=== PATIENT | female | born 1955 | race Caucasian/White ===

== ENCOUNTER 2019-04-30 11:18 | Outpatient (CLI) | payer BC ==
--- NOTE | 2019-04-30 12:14 | CT ---
CT Abdomen Pelvis W WO con: 04/30/2019 12:00 AM CLINICAL HISTORY: Microscopic Hematuria. Proteinuria and left lower quadrant abdominal pain. TECHNIQUE: Multiple contiguous axial images were obtained and a CT of the abdomen and pelvis without and with IV contrast. Postcontrast images were obtained in the nephrographic and excretory phases. Sagittal and coronal reformats were performed. COMPARISON: None. FINDINGS: Kidneys and Urinary Tract: Right kidney and ureter: No calculi. No hydronephrosis or hydroureter. No renal mass or other lesions . No urothelial lesions: no filling defect, dilation, stricture or wall thickening. Left kidney and ureter: No calculi. No hydronephrosis or hydroureter. No renal mass or other lesions. No urothelial lesions: no filling defect, dilation, stricture or wall thickening. Urinary bladder: Normal, no calculi, mass or other lesions. Remainder of Abdomen and Pelvis: Liver: Normal. Gallbladder and biliary system: Normal. No CT evident gallstones. No biliary ductal dilatation. Spleen: Normal. Pancreas: Normal. Adrenal glands: Normal. GI tract: Normal. Abdominal aorta and its major branches: Normal. No aneurysm. Peritoneum/retroperitoneum: Normal. No ascites. No adenopathy. Pelvic structures: Normal. No pelvic lymphadenopathy. Body wall and musculoskeletal: Degenerative changes in the spine. Visualized lower thorax: Normal. No pulmonary parenchymal mass or pleural effusion. IMPRESSION: Negative CT Urogram. No etiology identified for hematuria.
== END 2019-04-30 11:19 | disposition home or self-care (01) ==
LOC: BICCT 11:18
PROVIDERS: ATTEND Urology
DX: R31.29 Other microscopic hematuria (principal)
CPT/HCPCS: 74178; 82565

== ENCOUNTER 2020-04-30 08:47 | Outpatient (CLI) | payer MEDICARE ==
--- NOTE | 2020-04-30 10:59 | PET ---
PET SCAN WITH CT ATTENUATION CORRECTION: HISTORY: Abnormal MRI. Spine lesion. Evaluate for osseous disease/osseous metastases. COMPARISON: None. TECHNIQUE: PET scan with CT attenuation correction is performed from the base of the brain to the proximal thigh s following the intravenous and demonstration of 12.0 which is of [id number]. FINDINGS: Head and neck: There is increased FDG avidity involving a soft tissue mass in the right neck, measuri ng 1.8 x 1.[address] used for attenuation correction. This lesion has a maximum SUV of 6.8. An enlarged hypermetabolic neck lymph node is favored. Chest: There appears to be increased FDG avidity in the left and right hilum likely associated with h ypermetabolic lymph nodes. Right hilar lymph nodes have a maximum SUV of 8.7. Left hilar lymph nodes have a maximum SUV of 5.8. CT demonstrates multiple solid nodules throughout the lung parenchym a. The majority of these nodules are too small to adequately assess on PET imaging. There is a mildly hypermetabolic nodule in the left upper lobe with a maximum SUV of approximately 2. Abdomen and pelvis: No abnormal FDG localization. Extremities: Increased FDG avidity associated with a left knee arthroplasty, likely reactive. Osseous structures: There is no abnormal FDG avidity with regards to the thoracic or lumbar spine. Th ere is increased FDG avidity at L1, likely reactive from an associated vertebroplasty. No significant FDG avidity in the lumbosacral junction, compatible with suspected discitis ostial myelit is. IMPRESSION: 1. Fluorodeoxyglucose avidity involving a right neck lymph node. Lymph node may be amenable to ultras ound-guided biopsy. 2. Bilateral hilar hypermetabolic lymphadenopathy. Additional lung parenchymal nodules are identified . The majority of these nodules are too small to assess by PET imaging. 3. No evidence of abnormal FDG avidity involving the lumbar spine. The lesions noted on the MRI are l ikely below the imaging threshold criteria for PET imaging. CODE T Transcribed Date/Time: 04/30/2020 11:14 AM
== END 2020-04-30 08:48 | disposition home or self-care (01) ==
LOC: PET 08:47
PROVIDERS: ATTEND Surgery
DX: M46.40 Discitis, unspecified, site unspecified (principal); D48.0 Neoplasm of uncertain behavior of bone and articular cartilage; R59.0 Localized enlarged lymph nodes; R91.8 Other nonspecific abnormal finding of lung field
CPT/HCPCS: 78816; A9552

== ENCOUNTER 2020-10-29 08:53 | Outpatient (CLI) | payer MEDICARE, OTHER ==
[2020-10-29 10:31] LABS: PTT 23.6 sec (22.0-33.0); Prothrombin Time 10.6 sec (9.5-12.1)
[2020-10-29 10:42] LABS: Hemoglobin 13.4 g/dL (12.0-15.5); Mean Corpuscular HGB CONC 32.3 g/dL (32.0-36.0); Mean Corpuscular Hemoglobin 28.8 pg (27.0-33.0); Mean Corpuscular Volume 89.1 fl (81.6-98.3); Mean Platelet Volume 9.6 fl (7.4-10.4); Platelet Count 231 10x3/uL (150-450); RBC Distribution Width 14.4 % (11.5-14.5); Red Blood Cell (RBC) Count 4.66 10x6/uL (3.90-5.03); White Blood Cell (WBC) Count 8.5 10x3/uL (3.5-10.5)
[2020-10-29 10:45] LABS: Anion Gap 11 mmol/L (10-20); BUN (Urea Nitrogen) 21 mg/dL (9.8-20.1); Calc. Creatinine Clearance 0 mL/min (70-130); Calcium 9.5 mg/dL (7.8-10.44); Carbon Dioxide 29 mmol/L (23-31); Chloride 105 mmol/L (98-107); Glucose 85 mg/dL (80-115); Potassium 4.4 mmol/L (3.5-5.1); Sodium 141 mmol/L (136-145)
[2020-10-29 23:49] LABS: SARS-CoV-2 NAA Rapid Test Not Detected (NotDetected)
== END 2020-10-29 08:54 | disposition home or self-care (01) ==
LOC: LABBT 08:53
PROVIDERS: ATTEND Surgery
DX: Z01.818 Encounter for other preprocedural examination (principal); M48.062 Spinal stenosis, lumbar region with neurogenic claudication; M43.16 Spondylolisthesis, lumbar region; Z20.822 Contact with and (suspected) exposure to COVID-19
CPT/HCPCS: 80048; 85027; 85610; 85730; 86850; 86900; 86901; 93005; U0002; U0005; 93010

== ENCOUNTER 2020-11-03 07:56 | Day surgery (SDC) | payer MEDICARE ==
[2020-10-29 10:31] LABS: PTT 23.6 sec (22.0-33.0); Prothrombin Time 10.6 sec (9.5-12.1)
[2020-10-29 10:42] LABS: Hemoglobin 13.4 g/dL (12.0-15.5); Mean Corpuscular HGB CONC 32.3 g/dL (32.0-36.0); Mean Corpuscular Hemoglobin 28.8 pg (27.0-33.0); Mean Corpuscular Volume 89.1 fl (81.6-98.3); Mean Platelet Volume 9.6 fl (7.4-10.4); Platelet Count 231 10x3/uL (150-450); RBC Distribution Width 14.4 % (11.5-14.5); Red Blood Cell (RBC) Count 4.66 10x6/uL (3.90-5.03); White Blood Cell (WBC) Count 8.5 10x3/uL (3.5-10.5)
[2020-10-29 10:45] LABS: Anion Gap 11 mmol/L (10-20); BUN (Urea Nitrogen) 21 mg/dL (9.8-20.1); Calc. Creatinine Clearance 0 mL/min (70-130); Calcium 9.5 mg/dL (7.8-10.44); Carbon Dioxide 29 mmol/L (23-31); Chloride 105 mmol/L (98-107); Glucose 85 mg/dL (80-115); Potassium 4.4 mmol/L (3.5-5.1); Sodium 141 mmol/L (136-145)
[2020-10-29 23:49] LABS: SARS-CoV-2 NAA Rapid Test Not Detected (NotDetected)
[2020-11-03] MEDS ORDERED: Thrombin 5000 UNITS/5 ML VIAL ONE (08:39)
[2020-11-03] MEDS ORDERED: Fentanyl 250 MCG/5 ML VIAL ONE (09:08)
[2020-11-03] MEDS ORDERED: PHENYLEPHRINE-NS 100 MCG/ML 10 ML SYRINGE ONE (10:29)
[2020-11-03] MEDS ORDERED: Rocuronium Bromide 10 MG/ML (10ML VIAL) ONE (10:29)
[2020-11-03] MEDS ORDERED: Lidocaine 1% PF 5 ML VIAL ONE (10:29)
[2020-11-03] MEDS ORDERED: Glycopyrrolate 0.2 MG/ML 5 ML SYRINGE ONE (10:29)
[2020-11-03] MEDS ORDERED: PROPOFOL 200 MG/20 ML VIAL ONE (10:29)
[2020-11-03] MEDS ORDERED: Ketorolac Tromethamine 30 MG/ML VIAL ONE (10:29)
[2020-11-03] MEDS ORDERED: Ondansetron PF 4 MG/2 ML Vial ONE (10:29)
[2020-11-03] MEDS ORDERED: PACU-Morphine 4MG/ML VIAL SLOW IVP PRN (12:14)
[2020-11-03] MEDS ORDERED: Promethazine HCl 25 MG/ML VIAL SLOW IVP PRN (12:14)
[2020-11-03] MEDS ORDERED: Promethazine HCl 25 MG/ML VIAL IM PRN (12:14)
[2020-11-03] MEDS ORDERED: HYDROmorphone 2 MG/ML VIAL SLOW IVP PRN (12:14)
[2020-11-03] MEDS ORDERED: Morphine Sulfate 2 MG/ML SYRINGE SLOW IVP PRN (12:14)
[2020-11-03] MEDS ORDERED: Ondansetron HCl/PF 4 MG/2 ML Vial IVP PRN (12:14)
[2020-11-03] MEDS ORDERED: Acetaminophen 325 MG TAB PO PRN (13:03)
[2020-11-03] MEDS ORDERED: HYDROcodone/Acetaminophen 7.5/325 mg Tablet PO PRN (13:03)
[2020-11-03] MEDS ORDERED: traMADol HCl 50 MG TAB PO PRN (13:03)
[2020-11-03] MEDS ORDERED: Morphine 2 MG/ML VIAL SLOW IVP PRN (13:03)
[2020-11-03] MEDS ORDERED: Fentanyl 100 MCG/2 ML VIAL ONE (13:26)
[2020-11-03] MEDS ORDERED: Morphine 4 MG/ML VIAL ONE (13:27)
[2020-11-03] MEDS ORDERED: traZODone HCl 50 MG TAB PO PRN (13:37)
[2020-11-03] MEDS ORDERED: HYDROmorphone 2 MG/ML VIAL ONE (13:50)
[2020-11-03] MEDS ORDERED: CEFAZOLIN 2 GM in Premix Bag 1 BAG IVPB SCH (17:00)
[2020-11-03 19:28] VITALS: BMI 36.7
[2020-11-03] MEDS: tiZANidine HCl 4 MG TAB PO SCH ×2 (19:47→20:14)
[2020-11-03] MEDS: Sodium Chloride 0.9% 1,000 ML IV SCH ×2 (19:47→20:18)
[2020-11-03] MEDS: DULoxetine 60 MG CAP PO SCH (20:14)
[2020-11-03] MEDS: Calcium Carbonate 500 MG TAB PO SCH (20:15)
[2020-11-03] MEDS: Latanoprost 0.005% Ophth Soln 2.5 ml Bottle EA EYE SCH (20:15)
[2020-11-04] MEDS ORDERED: CEFAZOLIN 2 GM in Premix Bag 1 BAG IVPB SCH (04:00)
[2020-11-04 05:46] LABS: #Eosinphils 0.1 thou/uL (0.0-0.7); #Lymphocytes 1.1 thou/uL (1.20-3.40); #Monocytes 0.5 thou/uL (0.11-0.59); %Basophils 0.2 % (0.0-1.0); %Eosinophils 1.7 % (0.0-10.0); %Lymphocytes 13.6 % (21.0-51.0); %Monocytes 6.4 % (0.0-10.0); %Neutrophils 78.2 % (42.0-75.0); Mean Corpuscular HGB CONC 33.8 g/dL (32.0-36.0); Mean Corpuscular Hemoglobin 30.6 pg (27.0-31.0); Mean Corpuscular Volume 90.5 fL (78.0-98.0); Platelet Count 166 thou/uL (130-400); RBC Distribution Width 13.3 % (11.5-14.5); White Blood Cell (WBC) Count 7.7 thou/uL (4.8-10.8)
[2020-11-04 06:03] LABS: Anion Gap 8 mmol/L (10-20); BUN (Urea Nitrogen) 13 mg/dL (9.8-20.1); Calc. Creatinine Clearance 116 mL/min (70-130); Calcium 8.4 mg/dL (7.8-10.44); Carbon Dioxide 30 mmol/L (23-31); Chloride 104 mmol/L (98-107); Glucose 113 mg/dL (80-115); Potassium 4.1 mmol/L (3.5-5.1); Sodium 138 mmol/L (136-145)
[2020-11-04] MEDS: tiZANidine HCl 4 MG TAB PO SCH ×3 (10:29→20:25)
[2020-11-04] MEDS: Cholecalciferol 1,000 UNITS (25 MCG) TAB PO SCH (10:29)
[2020-11-04] MEDS: Pantoprazole 40 MG GRANULES PACKET PO SCH (10:30)
[2020-11-04] MEDS: predniSONE 5 MG TAB PO SCH (10:30)
[2020-11-04] MEDS: Sodium Chloride 0.9% 1,000 ML IV SCH ×2 (10:30→20:11)
[2020-11-04] MEDS: Calcium Carbonate 500 MG TAB PO SCH ×2 (10:30→20:25)
[2020-11-04] MEDS: Latanoprost 0.005% Ophth Soln 2.5 ml Bottle EA EYE SCH (20:24)
[2020-11-04] MEDS: BRIMONIDINE TARTRATE 0.2% EA EYE SCH ×3 (20:25→22:48)
[2020-11-04] MEDS: DULoxetine 60 MG CAP PO SCH (20:25)
[2020-11-04] MEDS ORDERED: Rosuvastatin 20 MG TAB PO SCH (21:00)
[2020-11-05] MEDS: Sodium Chloride 0.9% 1,000 ML IV SCH (05:18)
[2020-11-05] MEDS: Cholecalciferol 1,000 UNITS (25 MCG) TAB PO SCH (08:03)
[2020-11-05] MEDS: Calcium Carbonate 500 MG TAB PO SCH (08:03)
[2020-11-05] MEDS: BRIMONIDINE TARTRATE 0.2% EA EYE SCH (08:03)
[2020-11-05] MEDS: Pantoprazole 40 MG GRANULES PACKET PO SCH (08:03)
[2020-11-05] MEDS: predniSONE 5 MG TAB PO SCH (08:04)
[2020-11-05] MEDS: tiZANidine HCl 4 MG TAB PO SCH (08:04)
[2020-11-05 11:26] VITALS: BP 94/67; TEMP 97.9
== END 2020-11-05 14:30 | disposition home or self-care (01) ==
LOC: SDC 07:56 → SURG B 13:03 → SDC 11-05 14:30
PROVIDERS: ATTEND Surgery
PROC: 0SG0071 Fusion of Lumbar Vertebral Joint with Autologous Tissue Substitute, Posterior Approach, Posterior Column, Open Approach (ICD-10-PCS; principal; 2020-11-03)
PROC: 0SG3071 Fusion of Lumbosacral Joint with Autologous Tissue Substitute, Posterior Approach, Posterior Column, Open Approach (ICD-10-PCS; 2020-11-03)
DX: M43.16 Spondylolisthesis, lumbar region (principal); M48.062 Spinal stenosis, lumbar region with neurogenic claudication; M54.16 Radiculopathy, lumbar region; M81.0 Age-related osteoporosis without current pathological fracture; I10 Essential (primary) hypertension; E78.5 Hyperlipidemia, unspecified; G47.30 Sleep apnea, unspecified; M19.90 Unspecified osteoarthritis, unspecified site; Z79.52 Long term (current) use of systemic steroids; Z79.899 Other long term (current) drug therapy; Z88.1 Allergy status to other antibiotic agents; Z88.5 Allergy status to narcotic agent; Z20.822 Contact with and (suspected) exposure to COVID-19
CPT/HCPCS: 20930; 20936; 22612; 22614; 76000; 80048; 85025; 85027; 85610; 85730; 86850; 86900; 86901; 97110; 97116; 97139 ×3; C1768; U0002; U0005; 36415; J0690; J1170; J1885; J2270; J2405; J2704; J3010; J3370; J7512